=== PATIENT | female | born 1965 | race Caucasian/White ===

== ENCOUNTER → 2019-03-08 | Day surgery (SDC) | payer BC ==
[2019-03-06 10:35] VITALS: BMI 19.5
[~2019-03-08] MED LIST: Propofol 10 mg/ml Inj (20 ML) ONE; Sodium Chloride 0.9% 1,000 ML IV SCH
[2019-03-08 10:17] VITALS: O2SAT 100
[2019-03-08 11:03] VITALS: BP 113/81; PULSE 59; RESP 16; TEMP 97.6
== END | disposition home or self-care (01) ==
LOC: ENDO 08:47
PROVIDERS: ATTEND Internal Medicine Gastroenterology
DX: Z12.11 Encounter for screening for malignant neoplasm of colon (principal); K64.1 Second degree hemorrhoids
CPT/HCPCS: 45378; J2001; J2704; J7030